=== PATIENT | female | born 1940 | race Caucasian/White ===

== ENCOUNTER 2023-06-03 13:42 | Outpatient (CLI) | payer MEDICARE, OTHER, SELFPAY ==
--- NOTE | 2023-06-03 14:00 | CRLHL7_ITS ---
For Patients: As a result of the Century Cures Act, medical imaging exams and procedure reports are released immediately into your electronic medical record. You may view this report before your referring provider. If you have questions, please contact your health care provider. DXA BONE MINERAL DENSITY STUDY Current height (in): 65.0. Weight (lb): 147.0. Menopause age: 54. Ethnicity: White. Reason for exam: Osteoporosis followup. 1. Have you had a previous hip or vertebral fracture? No. 2. Have you had any fractures during your adult life which did not result from significant trauma (e.g., auto accident)? No. 3. Did either of your parents have a hip fracture? No. 4. Do you smoke? No. 5. Have you ever taken Glucocorticoids? No. 6. Do you have rheumatoid arthritis? No. 7. Do you have secondary osteoporosis? No. 8. Do you drink 3 or more alcoholic drinks per day? No. 9. Are you being treated for osteoporosis? No. 10. Have you ever taken any of the following medications: Actonel, Evista, Fosamax, Miacalcin, Reclast, Boniva, Forteo, HRT (i.e. estrogen/hormone therapy), Protelos, Prolia, Vitamin D, Calcium, other ??? please specify. ANSWER: Yes, calcium, vitamin D. 11. Do you have any of the following medical conditions: Anorexia or bulimia, asthma or emphysema, end stage renal disease, hyperparathyroidism, any seizure disorders, cancer, inflammatory bowel diseases, hysterectomy, other ??? please specify. ANSWER: Yes, other: arthritis/osteopenia 12. What was your maximum height (inches)? 66. 13. Do you perform weight bearing exercise regularly? No. 14. Do you regularly consume dairy products? Yes. 15. Do you drink caffeinated beverages? No. 16. At what age did your period start? 14. 17. Are you premenopausal? No. 18. How many full term pregnancies have you had? 1. 19. Have you ever missed your period for more than 6 months in a row (not including or menopause)? No. TECHNIQUE: Bone mineral density study was performed using the [employer]. FINDINGS: The results of the study expressed as bone mineral density (BMD) are as follows: Lumbar spine L1 to L4: BMD: 0.937 g/cm2. T-score: -1.1. Z-score: 1.7. Neck Left: BMD: 0.575 g/cm2. T-score: -2.5. Z-score: -0.1. Right: BMD: 0.575 g/cm2. T-score: -2.5. Z-score: -0.1. Total Left: BMD: 0.799 g/cm2. T-score: -1.2. Z-score: 0.9. Right: BMD: 0.758 g/cm2. T-score: -1.5. Z-score: 0.6. IMPRESSION: Osteoporosis. Srinivasa Roth M.D. Diagnostic Radiologist [email or web address] Transcribed: 4:08 pm DW/Dictated by: Srinivasa Roth MD @ 06/03/2023 3:50:00 PM (Electronically Signed)
== END 2023-06-03 13:43 | disposition home or self-care (01) ==
LOC: RAD 13:43
PROVIDERS: PCP Family Medicine; Visit Provider Family Medicine
DX: M81.0 Age-related osteoporosis without current pathological fracture (principal)
CPT/HCPCS: 77080

== ENCOUNTER 2023-12-07 13:28 | Outpatient (CLI) | payer MEDICARE, OTHER, SELFPAY ==
--- OUTSIDE RECORDS SUMMARY | 2023-12-07 13:32 | XMS_ITS | Clinical Summary ---
Author Name Unknown Organization [facility] Address [place], [place] [address] Care Team Providers Care Electronic Gaming Device Supervisor Name Role Phone Yassine Erickson MD Unavailable Alireza Richardson MD Unavailable [phone] Mireille Garza MD Primary Care Provider + Allergies No known active allergies Medications Medication Sig Dispensed Refills Start Date End Date Status acetaminophen (TYLENOL) 325 mg tablet Take 325-650 mg by mouth every 4 hours if needed. Max acetaminophen dose: 4000mg in 24 hrs. 0 Active PROXY UNCLASSIFIED MED (ORDER AWAITING PHARMACY ENTRY)Indications: Chronic midline thoracic back pain,Chronic midline low back pain without sciatica Acupuncture twice per month for chronic thoracic and lumbar back pain 1 unit 11/23/2017 Active medication order composerIndication s:Chronic midline thoracic back pain,Chronic midline low back pain without sciatica Massage therapy for treatment back and hip pain, chronic. Three times monthly 1 unit 0 11/23/2017 Active xylitol (XYLIMELTS) 550 mg mabt Apply to the lining of the mouth. 0 08/11/2019 Active cyanocobalamin (VITAMIN B-12) 1,000 mcg tablet Take 1 tablet by mouth once daily. 0 08/15/2020 Active magnesium oxide (MAG-OX 400) 400 mg tablet Take 1 Tablet (400 mg) by mouth once daily. Takes occasionally as needed 0 09/24/2021 Active melatonin 10 mg tab Take by mouth. 0 09/24/2021 Active famotidine (PEPCID) 20 mg tabletIndications: Gastroesophageal reflux disease, unspecified whether esophagitis present TAKE 1 TABLET(20 MG) BY MOUTH TWICE DAILY 180 Tablet 2 12/29/2021 Active calcium-vitamin D3-vitamin K 650 mg-12.5 mcg-40 mcg chewIndications:Os teopenia, unspecified location Chew 1 tablet. by mouth once daily. 0 03/23/2022 Active cholecalciferol (Vitamin D-3) 2,000 unit capsule Take 1 Capsule (2,000 units) by mouth once daily. 0 03/23/2022 Active ucogen-lviq-whfe-l evomef-silic 10-50-500-0.5 mg cap Take by mouth. 0 09/10/2022 Active amLODIPine (NORVASC) 5 mg tabletIndications: Primary hypertension Take 1 Tablet (5 mg) by mouth once daily. 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 Family history of breast cancer 06/10/2017 Acid reflux 03/28/2013 Overview: Upper GI 2020 - spontaneous reflux to proximal esophagus Small hiatal hernia Screen for colon cancer 12/17/2011 Overview: Colonoscopy 11/2011 normal no follow up needed Osteopenia 10/30/2011 Overview: Dexa 2020 - osteopenia, increased FRAX score Dexa 2017 Sensorineural hearing loss, bilateral 09/18/2011 Degenerative disc disease, cervical 07/16/2010 Overview: Multiple levels DJD (degenerative joint disease) 07/16/2010 Overview: L 2-3 and L 3-4 Arthropathy, unspecified, site unspecified 09/08 Degenerative joint disease of cervical spine Spondylosis of cervical spine Encounters Date Type Department Care Team Description 11/03/2023 1:00 PM SEX CRIMES DETECTIVE Office Visit [facility] [address] [place] [address] Evelyn Franklin, PhD, LP Individual Therapy 11/03/2023 Travel 10/06/2023 10:30 AM SEX CRIMES DETECTIVE Office Visit [facility] [address] [place] [address] Evelyn Franklin, PhD, LP Individual Therapy 10/06/2023 Travel 09/13/2023 2:30 PM CDT Office Visit [facility] [address] [place] [address] Evelyn Franklin, PhD, LP Individual Therapy; Trmt Plan 09/13/2023 Travel from Last 3 Months Immunizations Name Administration Dates Next Due AMB Influenza, IIV3 (Age >=3 years)(Flu Clinic Only) 10/13/2013,08/30/2012,09/27/2008 COVID-19 vaccine (Pfizer-Bio NTech 30mcg/0.3mL) 12YO+ GREGOR-SUCROSE PF, MDV 03/23/2022 COVID-19 vaccine (Beststudy-Bio NTech 30mcg/0.3mL) PF, MDV 08/21/2021,01/25/2021,01/04/2021 Hepatitis A (Adult) 01/24/2002,02/18/2001 Hepatitis B (Adult) 01/24/2002,03/25/2001,2000 Influenza Virus, Unspecified 09/27/2015 Influenza, High-dose Inactivated 08/22/2018,08/22,09/05/2014 Influenza, High-dose Quadriv alent Inactivated 08/25/2022,08/28/2021 Influenza, IIV3 (Age >=3 years) 10/30/2011,08/20,10/18/2007 Influenza, Inactivated AIIV4 (Age 65+ Years) Preserv Free 09/03/2020 Influenza, Inactivated IIV3 (Age 65+ Years) Preserv Free 08/30/2019 Influenza, Whole Virus 09/01/2017 Pneumococcal Poly,23-Valent (Pneumovax) 11/03/20 13 Pneumococcal conj 13-Valent (Prevnar 13) 015 Td (Age >=7 Years) 11/25/1998 Td, Preservative Free (age >= 7 Years) 0 Tdap 11/02/2012 Typhoid (injectable) 02/25/2001 Zoster (Shingrix-RZV, recombinant) 06/01/2018, Zoster (Zostavax-ZVL, live) 11/18/2012 Family History Medical History Relation Name Comments Alcohol/Drug Father Asthma Father Heart Disease Father [place] 60s Heart Disease Paternal Uncle Cancer-breast Sister 1 traudi Heart Disease Sister 1 traudi stent age 65 Brain cancer Sister 2 christl Cancer-breast Sister 2 christl mets to liver, bones, and brain Other Sister 2 christl overweight Cancer-ovarian No Family History Relation Name Status Comments Father Paternal Uncle Sister 1 traudi Alive Sister 2 christl Social History Tobacco Use Types Packs/Day Years Used Date Smoking Tobacco: Never Smokeless Tobacco: Never Tobacco Cessation:Counseling Given: Yes Alcohol Use Standard Drinks/Week Comments Yes 5.8 (1 standard drink = 0.6 oz p ure alcohol) wine, 1-2 glasses per day PHQ-2 Answer Date Recorded PHQ-2 TOTAL SCORE 2 03/23/2022 Social Connections Answer Date Recorded Frequency of Communication with Friends and Fami ly Not on file 03/30/2023 Financial Resource Strain Answer Date R ecorded Difficulty of Paying Living Expenses 3 03/23/2022 Difficulty of Paying Living Expenses Not on file 03/23/2022 Food Insecurity Answer Date Recorded Worried About Running Out of Food in the Last Ye ar 1 03/23/2022 Transportation Needs Answer Date Record ed Lack of Transportation (Medical) 1 03/23/2022 Housing Stability Answer Date Recorded Unable to Pay for Housing in the Last Year 1 03/23/2022 Sex and Gender Information Value Date Recorded Sex Assigned at Not on file Gender Identity Not on file Sexual Orientation Not on file Obstetrics History Para Term AB IAB SAB Ectopic Multiple Livin g Live Births 1 1 Date Outcome GA Total Labor Labor//3rd Weight Sex Delivery Anes PTL Jewell A1 A5 Name Cl in Last Filed Vital Signs Vital Sign [place] Time Taken Comments Blood Pressure 148/88 12/29/2022 1:35 PM SEX CRIMES DETECTIVE man ual Pulse 74 12/29/2022 1:35 PM SEX CRIMES DETECTIVE Temperature 36.5 ??C (97.7 ??F) 09/10/2022 11:05 AM C DT Respiratory Rate 18 09/10/2022 11:05 AM CDT Oxygen Saturation 97% 12/29/2022 1:35 PM SEX CRIMES DETECTIVE Inhaled Oxygen Concentration - - Weight 68.5 kg (151 lb) 12/29/2022 1:35 PM SEX CRIMES DETECTIVE Height 165.1 cm (5' 5) 09/10/2022 11:05 AM CDT Body Mass Index 25.13 09/10/2022 11:05 AM CDT Plan of Treatment Upcoming Encounters Date Type Department Care Team (Late st Contact Info) Description 12/08/2023 1:00 PM SEX CRIMES DETECTIVE Office Visit [facility] [address] [place] [phone] Evelyn Franklin, PhD, LP [address] [place] [address] Health Maintenance Due Date Last Done Comments Tetanus booster 11/02/2022 11/02/2012, 04/22, 11/25/1998 Medicare Wellness for age 65+ 03/23/2023, 12/04/2020, 11/29/2019, Additional history exists Depression screening for age 12+ 03/26/2023 03/26/2022, 03/23/2022, 12/04/2020, Additional history exists COVID-19 vaccine series ( season) 2023 08/25/2022, 03/23/2022, 08/21/2021, Additional history exists Influenza for age 65+ 07/23/2023 08/25/2022 , 08/28/2021, 09/03/2020, Additional history exists BMI (ht and wt on same day) for age 18+ 09/10/2023 09/10/2022, 03/23/2022, 08/22/2021, Additional history exists Tdap Completed 11/02/2012 Pneumococcal series for age 65+ Completed 5, 11/03/2013 Zoster (shingles) series for age 50+ Completed 06/01/2018, 03/09/2018, 11/18/2012 DEXA/DXA scan for age 65+ Completed 2020, 11/25/2017, 11/19/2015, Additional history exists Advance Directives Documents on File Type Date Recorded Patient Louver Door Assembler Expl anation Healthcare Directive 07/26/2018 9:52 AM HEJossue LTHCARE DIRECTIVE, [employer] [place], 07/20/18 Care Teams Electronic Gaming Device Supervisor Relationship Specialty Start Date End Date Mireille Garza MD [address] [place] [address] PCP - General Family Practice 05/10/23 Yassine Erickson MD Surgery - Orthopedics 11/07/15 Alireza Richardson MD [address] [place] [id number] Gastroenterology 03/23/22
== END 2023-12-07 13:29 | disposition home or self-care (01) ==
PROVIDERS: PCP Family Medicine; Visit Provider Family Medicine
DX: I10 Essential (primary) hypertension (principal); E78.5 Hyperlipidemia, unspecified; R00.2 Palpitations
CPT/HCPCS: 80048; 80061; 84443

== ENCOUNTER 2023-12-21 08:53 | Outpatient (CLI) | payer MEDICARE, OTHER, SELFPAY ==
--- OUTSIDE RECORDS SUMMARY | 2023-12-21 09:16 | XMS_ITS | Clinical Summary ---
Author Name Unknown Organization [facility] Address [place], [place] [address] Care Team Providers Care Manager Operating Name Role Phone Yassine Erickson MD Unavailable Alireza Richardson MD Unavailable [phone] Mireille Garza MD Primary Care Provider + [...] by mouth once daily. 0 03/23/2022 Active lsahey-grri-jjzs-l evomef-silic 10-50-500-0.5 mg cap Take by mouth. [...] Encounters Date Type Department Care Team Description 12/08/2023 1:00 PM WELLFIELD TECHNICIAN Office Visit [facility] [address] [place] [address] Evelyn Franklin, PhD, LP Individual Therapy 12/08/2023 Travel 11/03/2023 1:00 PM WELLFIELD TECHNICIAN Office Visit [facility] [address] [place] [address] Evelyn Franklin, PhD, LP Individual Therapy 11/03/2023 Travel 10/06/2023 10:30 AM WELLFIELD TECHNICIAN Office Visit [facility] [address] [place] [address] Evelyn Franklin, PhD, LP Individual Therapy 10/06/2023 Travel from Last 3 Months Immunizations Name Administration Dates Next Due AMB Influenza, IIV3 (Age >=3 years)(Flu Clinic Only) 10/13/2013,08/30/2012,09/27/2008 COVID-19 vaccine (Pfizer-Bio NTech 30mcg/0.3mL) 12YO+ GREGOR-SUCROSE PF, MDV 03/23/2022 COVID-19 vaccine (Pfizer-Bio NTech 30mcg/0.3mL) PF, MDV 08/21/2021,01/25/2021,01/04/2021 Hepatitis A [...] Alcohol/Drug Father Asthma Father Heart Disease Father [place] 60s Heart Disease Paternal Uncle Cancer-breast Sister [...] 1 1 Date Outcome GA Total Labor Labor/2nd/3rd Weight Sex Delivery Anes PTL Jewell A1 A5 Name Cl in Last Filed Vital Signs Vital Sign [place] Time Taken Comments Blood Pressure 148/88 12/29/2022 1:35 PM WELLFIELD TECHNICIAN man ual Pulse 74 12/29/2022 1:35 PM WELLFIELD TECHNICIAN Temperature 36.5 ??C (97.7 ??F) 09/10/2022 11:05 AM C DT Respiratory Rate 18 09/10/2022 11:05 AM CDT Oxygen Saturation 97% 12/29/2022 1:35 PM WELLFIELD TECHNICIAN Inhaled Oxygen Concentration - - Weight 68.5 kg (151 lb) 12/29/2022 1:35 PM WELLFIELD TECHNICIAN Height 165.1 cm (5' 5) 09/10/2022 11:05 AM CDT Body Mass Index 25.13 09/10/2022 11:05 AM CDT Plan of Treatment Upcoming Encounters Date Type Department Care Team (Late st Contact Info) Description 12/21/2023 9:30 AM WELLFIELD TECHNICIAN Ancillary Procedure [facility] [address] [place] [address] 01/19/2024 3:15 PM WELLFIELD TECHNICIAN Office Visit [facility] [address] [place] [address] Evelyn Franklin, PhD, LP [address] [place] [address] 02/09/2024 2:30 PM CDT Office Visit [facility] [address] [place] [address] Evelyn Franklin, PhD, LP [address] [place] [address] Health Maintenance Due Date Last Done Comments Tetanus booster 11/02/2022 11/02/2012, 04/22, 11/25/1998 Medicare Wellness for age 65+ 03/23/2023, 12/04/2020, 11/29/2019, Additional history exists Depression screening for age 12+ 03/26/2023 03/26/2022, 03/23/2022, 12/04/2020, Additional history exists COVID-19 vaccine series (2022-24 season) 2023 08/25/2022, 03/23/2022, 08/21/2021, Additional history [...] Documents on File Type Date Recorded Patient Grocery Shopper Expl anation Healthcare Directive 07/26/2018 9:52 AM HEA LTHCARE DIRECTIVE, [employer] [place], 07/20/18 Care Teams Manager Operating Relationship Specialty Start Date End Date Mireille Garza MD [address] [place] [address] PCP - General Family Practice 05/10/23 Yassine Erickson MD Surgery - Orthopedics 11/07/15 Alireza Richardson MD [address] [place] [id number] Gastroenterology 03/23/22
[2023-12-21 10:50] VITALS: BP 112/65; PULSE 75
--- NOTE | 2023-12-21 11:18 | PM.ST ---
Stress Test Note Date Date of test: 12/21/23 Providers Primary care provider: Mireille Garza Stress test physician: Jasen White Stress Test Note Stress test ordered: Stress Myoview Indication for test: Chest pain Results discussion: Patient is a very nice 83-year-old female who presents for the above test after discussion the risks benefits and side effects she would like to proceed. Cardiac stress test medical history form is reviewed. Pretest EKG shows right bundle branch block configuration, that is complete. Ventricular rate was 64 rhythm is sinus, with a blood pressure 139/87. ST wave abnormalities are noted in leads 2 and precordial leads, likely due to conduction delay. Standard Aime protocol is employed over a time period of 6 minutes 12 seconds, she achieved a metabolic equivalent of 7.5 Mets with a maximum heart rate of 127 which is 107% of the maximum. She did have some ST wave depression noted that resolved during this test. This occurred in the lateral precordial leads V5 and V6, inferiorly. This is indicative possible ischemia, but correlation with nuclear portion will be needed conditioning was felt to be good. She was otherwise asymptomatic. Impression: Positive stress test with inducement of ST wave changes described above. Correlate with nuclear portion. Follow up suggested: Nuclear portion will be read by nuclear Medicine, clinical correlation with this will be needed, patient left this testing facility at baseline with no complaints.
== END 2023-12-21 08:54 | disposition home or self-care (01) ==
PROVIDERS: PCP Family Medicine; Visit Provider Family Medicine
DX: R07.9 Chest pain, unspecified (principal); I45.10 Unspecified right bundle-branch block
CPT/HCPCS: 78452; 93016; 93017; A9500

== ENCOUNTER 2024-02-14 12:45 | Outpatient (CLI) | payer MEDICARE, OTHER, SELFPAY | END 2024-02-14 12:46 | disposition home or self-care (01) | LOC: RAD 12:46 | PROVIDERS: PCP Family Medicine; Visit Provider Family Medicine | DX: R01.1 Cardiac murmur, unspecified (principal); I35.1 Nonrheumatic aortic (valve) insufficiency; I34.0 Nonrheumatic mitral (valve) insufficiency | CPT/HCPCS: 93306 ==

== ENCOUNTER 2024-05-09 12:54 | Outpatient (CLI) | payer MEDICARE, OTHER, SELFPAY ==
--- OUTSIDE RECORDS SUMMARY | 2024-05-09 12:58 | XMS_ITS | Clinical Summary ---
Author Organization [employer] [facility] [employer] [facility] Address [place], [place] [address] Care Team Providers Care Supervisor Pipelines Name Role Phone Yassine Erickson MD Unavailable [phone] Alireza Richardson MD Unavailable Mireille Garza MD Primary Care Provider + Allergies No known active allergies Medications Medication Sig Dispensed Refills Start Date End Date Status acetaminophen (TYLENOL) 325 mg tablet Take 325-650 mg by mouth every 4 hours if needed. Max acetaminophen dose: 4000mg in 24 hrs. Active PROXY UNCLASSIFIED MED (ORDER AWAITING PHARMACY ENTRY)Indications: Chronic midline thoracic back pain,Chronic midline low back pain without sciatica Acupuncture twice per month for chronic thoracic and lumbar back pain 1 unit 11/23/2017 Active medication order composerIndication s:Chronic midline thoracic back pain,Chronic midline low back pain without sciatica Massage therapy for treatment back and hip pain, chronic. Three times monthly 1 unit 11/23/2017 Active xylitol (XYLIMELTS) 550 mg mabt [...] by mouth once daily. 0 03/23/2022 Active gvjxqt-muna-hgjz-l evomef-silic 10-50-500-0.5 mg cap Take by mouth. [...] Encounters Date Type Department Care Team Description 04/26/2024 1:00 PM CDT Office Visit [facility] [address] [place] [address] Evelyn Franklin, PhD, LP Individual Therapy 04/26/2024 Travel 04/10/2024 1:45 PM CDT Office Visit [facility] [address] [place] [address] Evelyn Franklin, PhD, LP Individual Therapy 04/10/2024 Travel 03/15/2024 1:45 PM CDT Office Visit [facility] [address] [place] [address] Evelyn Franklin, PhD, LP Individual Therapy 03/15/2024 Travel 02/14/2024 1:00 PM CDT Ancillary Procedure [facility] [address] [place] [address] 02/09/2024 2:30 PM CDT Office Visit [facility] [address] [place] [address] Evelyn Franklin, PhD, LP Individual Therapy 02/09/2024 Travel from Last 3 Months Immunizations Name [...] Alcohol/Drug Father Asthma Father Heart Disease Father [place] 60s Heart Disease Paternal Uncle Cancer-breast Sister [...] Outcome GA Total Labor Labor/2nd/3rd Weight Sex Type Anes PTL Jewell A1 A5 Name Clin Last Filed Vital Signs Vital Sign Reading Time Taken Comments Blood Pressure 148/88 12/29/2022 1:35 PM ARMORER TECHNICIAN man ual Pulse 74 12/29/2022 1:35 PM ARMORER TECHNICIAN Temperature 36.5 ??C (97.7 ??F) 09/10/2022 11:05 AM C DT Respiratory Rate 18 09/10/2022 11:05 AM CDT Oxygen Saturation 97% 12/29/2022 1:35 PM ARMORER TECHNICIAN Inhaled Oxygen Concentration - - Weight 68.5 kg (151 lb) 12/29/2022 1:35 PM ARMORER TECHNICIAN Height 165.1 cm (5' 5) 09/10/2022 11:05 AM CDT Body Mass Index 25.13 09/10/2022 11:05 AM CDT Plan of Treatment Upcoming Encounters Date Type Department Care Team (Late st Contact Info) Description 06/07/2024 9:45 AM CDT Office Visit [facility] [address] [place] [address] Evelyn Franklin, PhD, LP [address] [place] [address] Health Maintenance Due Date Last Done Comments Tetanus booster 11/02/2022 11/02/2012, 04/22, 11/25/1998 Medicare Wellness for age 65+ 03/24/2023, 12/04/2020, 11/29/2019, Additional history exists Depression screening for age 12+ 03/26/2023 03/26/2022, 03/23/2022, 12/04/2020, Additional history exists COVID-19 vaccine series ( season) 2023 08/25/2022, 03/23/2022, 08/21/2021, Additional history exists BMI (ht and wt on same day) for age 18+ 09/10/2023 09/10/2022, 03/23/2022, 08/22/2021, Additional history exists Influenza for age 65+ 07/23/2024 08/25/2022 , 08/28/2021, 09/03/2020, Additional history exists Tdap Completed 11/02/2012 Pneumococcal series for age 65+ Completed 5, 11/03/2013 Zoster (shingles) series for age 50+ Completed 06/01/2018, 03/09/2018, 11/18/2012 DEXA/DXA scan for age 65+ Completed 2020, 11/25/2017, 11/19/2015, Additional history exists Procedures Procedure Name Priority Date/Time Associated Diagnosis Comments ECHO TTE COMPLETE WO CONTRAST Routine 02/14/2024 1:19 PM CDT Murmur XR DXA BONE DENSITY 2 SITES AXIAL Routine 12/09/2020 2:11 PM ARMORER TECHNICIAN Menopause from Last 3 Months or Most Recently Relevant to Health Maintenance Results * ECHO TTE COMPLETE WO CONTRAST (02/14/2024 1:19 PM CDT) AORTIC VALVE MEAN PG 6 mmHg EJECTION FRACTION 78 % PEAK TR VELOCITY 2.6 m/s LVEDD 3.7 cm Anatomical Region Laterality Modality Ultrasound 02/14/2024 1:03 PM CDT Narrative 02/14/2024 1:45 PM CDT ECHOCARDIOGRAM NORBERT YEN ?Accession#: ?? [id number] : ?1940 83 years Study Date: ?? 02/14/2024 1:03:09 PM Gender: F ? BP: ? 138/86 mmHg Height: 165.00 cm ? BSA: ?1.76 m? ? ? Weight: 69.00 kg ?Tech: ? NWA ?Referring MD: TESHA GRECO Site: ? [facility] Reading Location: Mobile-OP Patient Location: Outpatient. Procedure: 2D, Color Doppler and Spectral Doppler. Indication for study: Murmur Cardiac Rhythm: Normal sinus.Study quality: Good. Final Impressions: 1. Normal left ventricular size, normal wall thickness, calculated EF of 78 %. 2. Normal right ventricular size and systolic function. 3. The aortic valve is trileaflet and sclerotic, no stenosis and trivial regurgitation. 4. The mitral valve is normal, mild mitral regurgitation. 5. The inferior vena cava is normal sized, respiratory size variation greater than 50%. Chamber Sizes and Function Normal left ventricular size, borderline wall thickness, hyperdynamic global systolic function, calculated EF of 78 %. Left atrial size is normal. Right ventricular cavity size is normal, global systolic RV function is normal. RV wall thickness is normal. The right atrium is normal. Right atrial volume index is 12 ml/m? ? ?. Right atrial area is 11 cm? ? ?. The pulmonary artery is of normal size and origin. The sinus of Valsalva is normal sized. The ascending aorta is normal sized. Valves, RV Pressures and Diastolic Function The aortic valve is trileaflet and sclerotic, no stenosis and trivial regurgitation. The mitral valve is normal in structure, mild mitral regurgitation. Normal diastolic function. The tricuspid valve is normal in structure. Tricuspid regurgitation is mild regurgitation. The tricuspid regurgitant velocity is 2.6 m/s, the estimated right ventricular systolic pressure is 28 mmHg plus right atrial pressure. The pulmonic valve is normal. Trace pulmonary regurgitation. Masses, Effusion, Shunts There is no pericardial effusion. The inferior vena cava is normal sized, respiratory size variation greater than 50%. No left to right shunting was detected by limited color flow Doppler interrogation of the interatrial septum. MEASUREMENTS AND CALCULATIONS 2-D Measurements and LV Function: LVID (d) 3.7 cm Planimetered EF 78 % LVID (s) 2.0 cm LV FS% (2D) ? 46 % IVS (d) ??1.1 cm LVOT diameter ?? 2.1 cm LVPW (d) 1.2 cm HR ?66 bpm Ao Sinus 3.4 cm LA Vol index ?26 ml/m2 Asc Ao ?? 3.6 cm RA Vol index ?12 ml/m2 LA ? 3.5 cm RA area ? 11 cm?RV Max 4C (d) ?? 2.6 cm Diastology: Mitral ?Tissue Doppler ?Pulmonary veins E Peak 1.1 m/s ??e', Septum ? 0.08 m/s Pulm s ?53.6 cm/s A Peak 1.1 m/s ??e', Lateral ?0.09 m/s Pulm d ?47.4 cm/s E/A ?1.0 ?E/e' Average ?? 13.54 ?Pulm s/d ratio ??1.13 DT ? 220 msec Aortic Valve: Vmax ? 1.6 m/s ??ISABEL (V) ?? 2.63 cm? ? ? VTI ?0.37 m ?? ISABEL (I) ?? 2.71 cm? ? ? LVOT V max 1.3 m/s ??Max PG ?10 mmHg LVOT VTI ?? 0.30 m ?? Mean PG ?? 6 mmHg SV ? 100 ml ?? Dim Index 0.81 SV index ?? 57 ml/m? ? ? CO ?6.6 l/min ?CI ?3.8 l/min/m? ? ? Mitral Valve: MVA ?3.4 cm? ? ? MV P 1/2 64 msec Tricuspid Valve and estimated PA pressures: TR Vmax 2.6 m/s TAPSE 2.3 cm TR maxG 28 mmHg Pulmonic Valve: PV Vmax 1.2 m/s . This study was interpreted by an [facility] accredited facility. CC: [facility] (med records) [facility]. ??Final ?? Procedure Note Jaren Romeo MD - 02/14/2024 ECHOCARDIOGRAM NORBERT YEN : 1940 83 years Study Date: 02/14/2024 1:03:09 PM Gender: F BP: 138/86 mmHg Height: 165.00 cm BSA: 1.76 m? ? ? Weight: 69.00 kg Tech: NWA Referring MD: TESHA GRECO Site: [facility] Reading Location: Mobile-OP Patient Location: Outpatient. Procedure: 2D, Color Doppler and Spectral Doppler. Indication for study: Murmur Cardiac Rhythm: Normal sinus.Study quality: Good. Final Impressions: 1. Normal left ventricular size, normal wall thickness, calculated EF of78 %. 2. Normal right ventricular size and systolic function. 3. The aortic valve is trileaflet and sclerotic, no stenosis and trivialregurgitation. 4. The mitral valve is normal, mild mitral regurgitation. 5. The inferior vena cava is normal sized, respiratory size variationgreater than 50%. Chamber Sizes and Function Normal left ventricular size, borderline wall thickness, hyperdynamicglobal systolic function, calculated EF of 78 %. Left atrial size isnormal. Right ventricular cavity size is normal, global systolic RVfunction is normal. RV wall thickness is normal. The right atrium isnormal. Right atrial volume index is 12 ml/m? ? ?. Right atrial area is 11cm? ? ?. The pulmonary artery is of normal size and origin. The sinus ofValsalva is normal sized. The ascending aorta is normal sized. Valves, RV Pressures and Diastolic Function The aortic valve is trileaflet and sclerotic, no stenosis and trivialregurgitation. The mitral valve is normal in structure, mild mitralregurgitation. Normal diastolic function. The tricuspid valve is normal instructure. Tricuspid regurgitation is mild regurgitation. The tricuspidregurgitant velocity is 2.6 m/s, the estimated right ventricular systolicpressure is 28 mmHg plus right atrial pressure. The pulmonic valve isnormal. Trace pulmonary regurgitation. Masses, Effusion, Shunts There is no pericardial effusion. The inferior vena cava is normal sized,respiratory size variation greater than 50%. No left to right shunting wasdetected by limited color flow Doppler interrogation of the interatrialseptum. MEASUREMENTS AND CALCULATIONS 2-D Measurements and LV Function: LVID (d) 3.7 cm Planimetered EF 78 % LVID (s) 2.0 cm LV FS% (2D) 46 % IVS (d) 1.1 cm LVOT diameter 2.1 cm LVPW (d) 1.2 cm HR 66 bpm Ao Sinus 3.4 cm LA Vol index 26 ml/m2 Asc Ao 3.6 cm RA Vol index 12 ml/m2 LA 3.5 cm RA area 11 cm? ? ? RV Max 4C (d) 2.6 cm Diastology: Mitral Tissue Doppler Pulmonary veins E Peak 1.1 m/s e', Septum 0.08 m/s Pulm s 53.6 cm/s A Peak 1.1 m/s e', Lateral 0.09 m/s Pulm d 47.4 cm/s E/A 1.0 E/e' Average 13.54 Pulm s/d ratio 1.13 DT 220 msec Aortic Valve: Vmax 1.6 m/s ISABEL (V) 2.63 cm? ? ? VTI 0.37 m ISABEL (I) 2.71 cm? ? ? LVOT V max 1.3 m/s Max PG 10 mmHg LVOT VTI 0.30 m Mean PG 6 mmHg SV 100 ml Dim Index 0.81 SV index 57 ml/m? ? ? CO 6.6 l/min CI 3.8 l/min/m? ? ? Mitral Valve: MVA 3.4 cm? ? ? MV P 1/2 64 msec Tricuspid Valve and estimated PA pressures: TR Vmax 2.6 m/s TAPSE 2.3 cm TR maxG 28 mmHg Pulmonic Valve: PV Vmax 1.2 m/s . This study was interpreted by an [facility] accredited facility. CC: [place] (med records) [facility]. Final Tesha Greco PA-C ECHO ORD * (ABNORMAL) XR DXA BONE DENSITY 2 SITES AXIAL (12/09/2020 2:11 PM ARMORER TECHNICIAN) Anatomical Region Laterality Modality Spine, HIPS, HIPL, HIPR Other Narrative 12/11/2020 2:44 PM ARMORER TECHNICIAN Please see scanned document for results of this study. Tali Patel MD DEXA from Last 3 Months or Most Recently Relevant to Health Maintenance Advance Directives Documents on File Type Date Recorded Patient Patrol Officer Expl anation Healthcare Directive 07/26/2018 9:52 AM HEA LTHCARE DIRECTIVE, [employer] [place], 07/20/18 Care Teams Supervisor Pipelines Relationship Specialty Start Date End Date Mireille Garza MD [address] [place] [address] PCP - General Family Practice 05/10/23 Yassine Erickson MD Surgery - Orthopedics 11/07/15 Alireza Richardson MD [address] [place] [address] Gastroenterology 03/23/22
--- NOTE | 2024-05-09 13:00 | CRLHL7_ITS ---
For Patients: As a result of the Century Cures Act, medical imaging exams and procedure reports are released immediately into your electronic medical record. You may view this report before your referring provider. If you have questions, please contact your health care provider. BILATERAL SCREENING MAMMOGRAM WITH COMPUTER-AIDED DETECTION AND TOMOSYNTHESIS TECHNIQUE: CC and MLO views were obtained. These mammographic images have been obtained using full-field digital technique. These mammographic images were interpreted with the benefit of computer-aided detection. Breast Tomosynthesis was used in this interpretation. COMPARISON FILM: 01/01/23, 12/10/21, 12/09/20. FINDINGS: There are scattered areas of fibroglandular density. IMPRESSION: There is no radiographic evidence for malignancy. ASSESSMENT: BI-RADS Category 2: Benign RECOMMENDATION: Routine screening mammogram in 1 year. A lay language report of this examination will be provided to the patient. Srinivasa Roth M.D. Diagnostic Radiologist [email or web address] SP/Dictated by: Srinivasa Roth MD @ 05/11/2024 10:21:00 AM (Electronically Signed)
== END 2024-05-09 12:55 | disposition home or self-care (01) ==
LOC: MAMMO 12:57
PROVIDERS: PCP Family Medicine; Visit Provider Family Medicine
DX: Z12.31 Encounter for screening mammogram for malignant neoplasm of breast (principal)
CPT/HCPCS: 77063; 77067

== ENCOUNTER 2024-06-19 09:42 | Outpatient (CLI) | payer MEDICARE, OTHER, SELFPAY ==
--- OUTSIDE RECORDS SUMMARY | 2024-06-20 11:21 | XMS_ITS | Clinical Summary ---
Author Organization [employer] [facility] [employer] [facility] Address [place], [place] [address] Care Team Providers Care Stripper Machine Operator Name Role Phone Yassine Erickson MD Unavailable [phone] Alireza Richardson MD Unavailable [phone] Mireille Garza MD Primary Care Provider + [...] by mouth once daily. 0 03/23/2022 Active klejxb-evaa-adqx-l evomef-silic 10-50-500-0.5 mg cap Take by mouth. [...] Encounters Date Type Department Care Team Description 06/07/2024 9:45 AM CDT Office Visit [facility] [address] [place] [address] Evelyn Franklin, PhD, LP Individual Therapy 06/07/2024 Travel 04/26/2024 1:00 PM CDT Office Visit [facility] [address] [place] [address] Evelyn Franklin, PhD, LP Individual Therapy 04/26/2024 Travel 04/10/2024 1:45 PM CDT Office Visit [facility] [address] [facility] [place] [address] Evelyn Franklin, PhD, LP Individual Therapy 04/10/2024 Travel from Last 3 Months Immunizations Name [...] Alcohol/Drug Father Asthma Father Heart Disease Father [place] 60s Heart Disease Paternal Uncle Cancer-breast Sister [...] Comments Blood Pressure 148/88 12/29/2022 1:35 PM CATEGORY DIRECTOR man ual Pulse 74 12/29/2022 1:35 PM CATEGORY DIRECTOR Temperature 36.5 ??C (97.7 ??F) 09/10/2022 11:05 AM C DT Respiratory Rate 18 09/10/2022 11:05 AM CDT Oxygen Saturation 97% 12/29/2022 1:35 PM CATEGORY DIRECTOR Inhaled Oxygen Concentration - - Weight 68.5 kg (151 lb) 12/29/2022 1:35 PM CATEGORY DIRECTOR Height 165.1 cm (5' 5) 09/10/2022 11:05 AM CDT Body Mass Index 25.13 09/10/2022 11:05 AM CDT Plan of Treatment Upcoming Encounters Date Type Department Care Team (Late st Contact Info) Description 07/10/2024 10:30 AM CDT Office Visit [facility] [address] [place] [phone] Evelyn Franklin, PhD, LP [address] [place] [address] 08/07/2024 2:30 PM CDT Office Visit [facility] [address] [place] [address] Evelyn Franklin, PhD, LP [address] [place] [address] Health Maintenance Due Date Last Done Comments [...] Procedure Name Priority Date/Time Associated Diagnosis Comments XR DXA BONE DENSITY 2 SITES AXIAL Routine 12/09/2020 2:11 PM CATEGORY DIRECTOR Menopause from Last 3 Months or Most Recently Relevant to Health Maintenance Results * (ABNORMAL) XR DXA BONE DENSITY 2 SITES AXIAL (12/09/2020 2:11 PM CATEGORY DIRECTOR) Anatomical Region Laterality Modality Spine, HIPS, HIPL, HIPR Other Narrative 12/11/2020 2:44 PM CATEGORY DIRECTOR Please see scanned document for results of this study. Tali Patel MD DEXA from Last 3 Months or Most Recently Relevant to Health Maintenance Advance Directives Documents on File Type Date Recorded Patient Financial Compliance Examiner Expl anation Healthcare Directive 07/26/2018 9:52 AM HEA LTHCARE DIRECTIVE, [employer] [place], 07/20/18 Care Teams Stripper Machine Operator Relationship Specialty Start Date End Date Mireille Garza MD [address] [place] [address] PCP - General Family Practice 05/10/23 Yassine Erickson MD Surgery - Orthopedics 11/07/15 Alireza Richardson MD [facility] [place] [address] Gastroenterology 03/23/22
== END 2024-06-19 09:43 | disposition home or self-care (01) ==
LOC: NFLDREF 06-20 11:19
PROVIDERS: PCP Family Medicine; Referring Provider Family Medicine; Visit Provider Family Medicine
DX: E78.5 Hyperlipidemia, unspecified (principal); E53.8 Deficiency of other specified B group vitamins; M81.0 Age-related osteoporosis without current pathological fracture; I10 Essential (primary) hypertension
CPT/HCPCS: 80053; 80061; 82306; 82607

== ENCOUNTER 2024-11-24 14:30 | Outpatient (CLI) | payer MEDICARE, OTHER, SELFPAY | END 2024-11-24 14:31 | disposition home or self-care (01) | LOC: NFLDREF 11-25 18:53 | PROVIDERS: PCP Family Medicine; Referring Provider Family Medicine; Visit Provider Obstetrics & Gynecology | DX: R39.15 Urgency of urination (principal) | CPT/HCPCS: 87086 ==

== ENCOUNTER 2025-04-18 09:45 | Outpatient (RCR) | payer MEDICARE, OTHER, SELFPAY ==
--- NOTE | 2025-01-31 14:21 | PT.OPEX ---
PT [facility] Outpatient Eval PT [facility] Outpatient Eval Start: 01/31/25 08:05 Freq: Status: Active Protocol: Document 01/31/25 14:19 TALIA (Rec: 01/31/25 14:21 TALIA [id number]) E-signed By Mallory Lloyd, PT Physical Therapy Outpatient Evaluation Insurance Information Recert Due Date 05/01/25 Insurance Name Medicare B Medical Diagnosis Urinary incontinence Treating Diagnosis Urinary frequency, urinary urgency, chronic constipation, R hip weakness Referring Dania Alves Subjective Preferred Name Js Subjective FOr the last 20-30 years has had increased urinary urges and frequency. She is now voiding hourly and 3-4x/night. She does have to use a toilet paper over finger to initiate defecation. She has constipation since childhood. Started bed wetting as a child p having whooping cough. Has asthma and snores as well. She has started vaginal estrogen a few weeks ago. She does use prunes to help her have regular stool intervals. 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 Cannot go 2 hours s voiding. She is up 3x/night. MInimal urine leakage Bowel Hx:BSS 1-2 more common, has to use pressure at EAS to initiate/help stools Pelvic hx: h/o discomfort with intercourse external layers when active. Menopause 30 years ago, not sexually active . Started vaginal estrogen a few weeks ago. VERY dry. / hx: 1 vaginal , long labor, no complications. Breathing: chest/neck breathing, snores at night Pressure management: holds breath [place]: Posture Assessment: hips IR, navicular drop, valgus at first rays, reduced lumbar lordosis TA strength: Fair with cues LUMBAR ROM Flexion: discomfort in lumbar spine repeated flexion: lumbar discomfort Extension: limited 50% Right Sidebend: WFL Left Sidebend: WFL LE MMT Hip flexion: R 4-/5 L 4/5 Hip Extension: deferred Hip abduction: R 3/5 L 4-/5 knee extension: R 4/5 L 4/5 Knee Flexion: R 4/5 L 4/5 JOINT MOBILITY/PALPATION Surgical hx: appendectomy age 14, squamous cell carcinoma near anus in last year Functional Test Performed & Score Impaired single leg stance bilat reports altered nerve sensation and warmth to distal toes Assessment Assessment/Impression Pt is an 84 yr old female c a long standing h/o bladder urgency. She does note some positive valadez in door urgency . Her chronic constipation and snoring during sleeping may be affecting her bladder signals as well. She has increased acidic fluid intake and does not enjoy pure water, which may also be contributing factors. Discussed toilet posturing and improving defecation strategy with footstool. She would benefit from internal assessment to determine muscle strength and coordination of pelvic floor muscles. Primary Functional Limitations urinary frequency, constipation c need to aid defecation, LBP c prolonged walking Plan of Care Physical Therapy Goals Pt will report 50% improvement in overall sx discomfort in 6 weeks for improved QOL. Pt will be indep c 360 breathing to improve pelvic floor coordination in 4 weeks. Pt will demonstrate indep c pelvic floor lift on exhale to support structurally with exertion in 12 weeks. Pt will report improved bladder emptying in 12 weeks for improved QOL. Pt will report improved bristol stool scale of 3-4 5 days/week to reduce bladder emptying obstruction in 8 weeks. Pt will demonstrate improved toilet hygiene with postural considerations and no straining to evacuate bowels or bladder to reduce downward forces on pelvic floor in 12 weeks. Pt will report nocturia of 1- 2x/night for improved QOL in 12 weeks. Coordination/Communication With Referral Source Treatment Plan/Direct Interventions Biofeedback,Electrical Stimulation,Gait Training,Heat ,Ice/Cold/Vasopneumatic,Manual Therapy,Neuromuscular Re-ed, Self-Care/Home Management, Therapeutic Activities, Therapeutic Exercises Frequency/Duration Weekly x12 weeks Patient Will Be Discharged From Therapy Completion of LTG(s),Skills Plateau,Independent w/HEP, Independently Progressing Evaluation Billing Untimed Code Treatment Minutes 50 PT Eval No Charge No Complexity Moderate Certification Information Initial Certification Date 01/31/25 Ending Certification Date 05/01/25 Provider Signature Required Yes Provider Signature Shows Agreement With POC & Medical Necessity Physician NPI Number Write NPI# Here Physician Comment/Change : Physician Signature & Date Requested Please Sign/Date Here
== END 2025-08-16 23:59 | disposition home or self-care (01) ==
PROVIDERS: PCP Family Medicine; Visit Provider Obstetrics & Gynecology
DX: N39.41 Urge incontinence (principal); R35.0 Frequency of micturition; K59.00 Constipation, unspecified; R29.898 Other symptoms and signs involving the musculoskeletal system; Z51.89 Encounter for other specified aftercare
CPT/HCPCS: 97112; 97140; 97162; 97530; 97535

== ENCOUNTER 2025-06-01 09:35 | Outpatient (CLI) | payer MEDICARE, OTHER, SELFPAY ==
--- NOTE | 2025-06-01 10:00 | CRLHL7_ITS ---
For Patients: As a result of the Century Cures Act, medical imaging exams and procedure reports are released immediately into your electronic medical record. You may view this report before your referring provider. If you have questions, please contact your health care provider. Indication: UPPER ABD TENDERNESS X 2 MONTHS Technique: CT Abdomen/Pelvis 69CC ISOVUE 370 INTRAVENOUS CONTRAST AND WATER PREP Please note that all CT scans at this facility use dose modulation, iterative reconstruction, and/or weight-based dosing when appropriate to reduce radiation dose to as low as reasonably achievable. Comparison: None Findings: Mild scarring in both lung bases. No pleural effusion. No pulmonary edema. Incidental 2.4 millimeter nodule in the lingula. No intrahepatic mass. Normal spleen. Pancreas unremarkable. Normal adrenal glands. Kidneys are normal. Normal gallbladder. Atherosclerotic changes. No aneurysm. No hiatal hernia. No retroperitoneal or mesenteric adenopathy. No bowel obstruction, free air, free fluid or abscess. The bladder is incompletely distended. No pelvic or inguinal adenopathy. No pelvic mass. Umbilical hernia containing fat is present which measures 1.3 cm. No significant diastasis of the rectus muscles. Degenerative facet arthropathy lower lumbar spine with slight degenerative anterolisthesis in the mid lumbar spine. No fracture. Impression: Fat filled umbilical hernia measures 1.3 cm. No rectus diastasis. Please note that all CT scans at this facility use dose modulation, iterative reconstruction, and/or weight-based dosing when appropriate to reduce radiation dose to as low as reasonably achievable. Dictated by Srinivasa Roth MD @ 06/01/2025 12:03:22 PM (Electronically Signed)
[2025-06-01 10:13] LABS: Creatinine* 0.6 mg/dL (0.5-1.5); Estimated Glomerular Filt Rate 90 ml/min
== END 2025-06-01 09:36 | disposition home or self-care (01) ==
LOC: CT 09:37
PROVIDERS: PCP Family Medicine; Visit Provider Obstetrics & Gynecology
DX: R19.09 Other intra-abdominal and pelvic swelling, mass and lump (principal); K42.9 Umbilical hernia without obstruction or gangrene; R10.819 Abdominal tenderness, unspecified site
CPT/HCPCS: 36415; 74177; 82565; Q9967

== ENCOUNTER 2025-06-25 07:50 | Outpatient (CLI) | payer MEDICARE, OTHER, SELFPAY | END 2025-06-25 07:51 | disposition home or self-care (01) | LOC: NFLDREF 06-27 15:05 | PROVIDERS: PCP Family Medicine; Referring Provider Family Medicine; Visit Provider Family Medicine | DX: E78.5 Hyperlipidemia, unspecified (principal); E53.8 Deficiency of other specified B group vitamins; M81.0 Age-related osteoporosis without current pathological fracture; I10 Essential (primary) hypertension; R53.83 Other fatigue | CPT/HCPCS: 80053; 80061; 82306; 82607; 84443 ==

== ENCOUNTER 2025-07-11 10:40 | Outpatient (CLI) | payer MEDICARE, OTHER, SELFPAY ==
--- NOTE | 2025-07-11 10:45 | CRLHL7_ITS ---
For Patients: As a result of the Century Cures Act, medical imaging exams and procedure reports are released immediately into your electronic medical record. You may view this report before your referring provider. If you have questions, please contact your health care provider. BILATERAL DIGITAL SCREENING MAMMOGRAM WITH COMPUTER-AIDED DETECTION AND TOMOSYNTHESIS CLINICAL HISTORY: : Routine screening exam. COMPARISON: Mammograms dated 05/09/2024, 01/01/2023 TECHNIQUE: Digital mammogram in CC and MLO projections including computer-aided detection (CAD). Tomosynthesis was utilized. BREAST COMPOSITION: There are scattered areas of fibroglandular density. FINDINGS: RIGHT Breast: No suspicious findings. LEFT Breast: Asymmetries in the medial breast middle depth. IMPRESSION: LEFT breast asymmetry/mass. RECOMMENDATIONS: Additional mammographic views of the LEFT breast including CC spot compression view, 90 degree lateral view. LEFT breast ultrasound may also be required. A member of the health care team will contact the patient to schedule the required additional imaging appointment(s). BI-RADS Category 0: Incomplete: Need Additional Imaging Evaluation Dictated by Shahana Negrete MD @ 07/11/2025 7:47:23 PM (Electronically Signed)
== END 2025-07-11 10:41 | disposition home or self-care (01) ==
LOC: MAMMO 10:41
PROVIDERS: PCP Family Medicine; Visit Provider Family Medicine
DX: Z12.31 Encounter for screening mammogram for malignant neoplasm of breast (principal); N63.20 Unspecified lump in the left breast, unspecified quadrant
CPT/HCPCS: 77063; 77067

== ENCOUNTER 2025-07-26 08:45 | Outpatient (CLI) | payer MEDICARE, OTHER, SELFPAY ==
--- NOTE | 2025-07-26 08:45 | CRLHL7_ITS ---
For Patients: As a result of the Cures Act, medical imaging exams and procedure reports are released immediately into your electronic medical record. You may view this report before your referring provider. If you have questions, please contact your health care provider. DIGITAL DIAGNOSTIC LEFT MAMMOGRAM USING TOMOSYNTHESIS LEFT BREAST ULTRASOUND CLINICAL HISTORY: LEFT breast mass/asymmetry. COMPARISON: 07/11/2025, 05/09/2024, 12/10/2021. TECHNIQUE: Digital LEFT mammogram in two projections. Tomosynthesis was used in this interpretation. Real-time ultrasound imaging of LEFT breast with imaging documentation. Scanning was performed by both the technologist and the radiologist. BREAST COMPOSITION: There are scattered areas of fibroglandular density. FINDINGS: Additional mammogram images LEFT breast submitted. Decreased conspicuity of previously noted asymmetric densities. Benign calcifications. Targeted LEFT breast ultrasound performed. At 9 o`clock 3 cm from the nipple there is a subtle hypoechoic nodule at posterior depth measuring 6 x 5 x 7 millimeters. A benign-appearing ovoid hypoechoic structure at 11 o`clock 1 cm from the nipple is also noted. Normal LEFT axillary lymph nodes. IMPRESSION: Indeterminate subtle hypoechoic nodule posterior depth LEFT breast 9 o`clock 3 cm from the nipple measuring 6 x 5 x 7 millimeters. RECOMMENDATIONS: Ultrasound-guided core needle biopsy. A lay language report of this examination will be provided to the patient. BI-RADS Category 4: Suspicious Dictated by Srinivasa Roth MD @ 07/26/2025 10:42:23 AM jj/Dictated by: Srinivasa Roth MD @ 07/26/2025 10:42:00 AM (Electronically Signed)
--- NOTE | 2025-07-26 09:15 | CRLHL7_ITS ---
For Patients: As a result of the Century Cures Act, medical imaging exams and procedure reports are released immediately into your electronic medical record. You may view this report before your referring provider. If you have questions, please contact your health care provider. SEE DIGITAL DIAGNOSTIC LEFT MAMMOGRAM PERFORMED SAME DAY CRL:[email or web address]/Dictated by: Srinivasa Roth MD @ 07/26/2025 10:42:00 AM (Electronically Signed)
== END 2025-07-26 08:46 | disposition home or self-care (01) ==
LOC: MAMMO 08:46
PROVIDERS: PCP Family Medicine; Visit Provider Family Medicine
DX: N63.20 Unspecified lump in the left breast, unspecified quadrant (principal); R92.8 Other abnormal and inconclusive findings on diagnostic imaging of breast
CPT/HCPCS: 76642; 77065; G0279

== ENCOUNTER 2025-08-06 09:57 | Outpatient (CLI) | payer MEDICARE, OTHER, SELFPAY ==
--- NOTE | 2025-08-06 10:15 | CRLHL7_ITS ---
For Patients: As a result of the Century Cures Act, medical imaging exams and procedure reports are released immediately into your electronic medical record. You may view this report before your referring provider. If you have questions, please contact your health care provider. ULTRASOUND-GUIDED BREAST BIOPSY AND POST-BIOPSY DIGITAL MAMMOGRAM FOR BIOPSY MARKER PLACEMENT CLINICAL HISTORY: Indeterminate nodule. COMPARISON STUDIES: 07/26/2025. TECHNIQUE: Real-time ultrasound with image documentation was used for targeting the breast lesion. Core biopsy specimens were obtained using an automated gun with an 18-gauge biopsy needle. Post-biopsy CC and ML digital mammograms were obtained to document position of the biopsy marker. CONSENT and TIME OUT: The procedure, risks, and alternatives were explained to the patient and a consent was signed. [place] Protocol was followed including pre-procedure verification that relevant information/documentation was available, reviewed and properly matched to the patient; consent accurate and complete; and equipment and supplies available. Time Out was conducted just prior to starting procedure to verify the four required elements: patient identity, correct side/site marked (if applicable), procedure, relevant images/results properly labeled and displayed (if applicable). PROCEDURE: The patient was positioned supine on the ultrasound table. The breast was prepped with ChloraPrep. 8 cc of 1 percent lidocaine used for local anesthesia. Core samples were obtained. A sterile metal biopsy clip was placed percutaneously to basilia the lesion position within the breast. The specimens were placed in 10% formalin and sent to the pathology department. Pressure was held on the biopsy site until all bleeding subsided. The skin incision was closed with Steri-Strips. An ice pack was positioned over the biopsy site. Post-biopsy instructions were reviewed with the patient, and a written copy was given to her. LATERALITY: LEFT breast. LESION: Hypoechoic solid nodule at posterior depth measuring 6 x 5 x 7 millimeters at 9 o`clock 3 cm from the nipple. SUSPICION FOR MALIGNANCY: High. NUMBER OF SAMPLES: 6. BIOPSY CLIP SHAPE: Oval. PROXIMITY OF CLIP TO TARGET: Immediately adjacent to the mass. IMPRESSION: Ultrasound-guided breast biopsy. When the pathology report is available, an addendum to this report will be made. ACR not applicable Dictated by Srinivasa Roth MD @ 08/06/2025 12:12:36 PM jj/Dictated by: Srinivasa Roth MD @ 08/06/2025 12:10:00 PM (Electronically Signed)
--- NOTE | 2025-08-06 11:00 | CRLHL7_ITS ---
For Patients: As a result of the Century Cures Act, medical imaging exams and procedure reports are released immediately into your electronic medical record. You may view this report before your referring provider. If you have questions, please contact your health care provider. SEE ULTRASOUND-GUIDED LEFT BREAST BIOPSY PERFORMED SAME DAY CRL:[email or web address]/Dictated by: Srinivasa Roth MD @ 08/06/2025 12:11:00 PM (Electronically Signed)
== END 2025-08-06 09:58 | disposition home or self-care (01) ==
LOC: US 09:58
PROVIDERS: PCP Family Medicine; Visit Provider Family Medicine
DX: N63.20 Unspecified lump in the left breast, unspecified quadrant (principal); C50.912 Malignant neoplasm of unspecified site of left female breast; R92.8 Other abnormal and inconclusive findings on diagnostic imaging of breast
CPT/HCPCS: 19083; 77065; 88305; 88342; 88360; 88361; A4648; A4649

== ENCOUNTER 2025-08-30 07:54 | Day surgery (SDC) | payer MEDICARE, OTHER, SELFPAY ==
--- NOTE | 2025-08-30 08:15 | CRLHL7_ITS ---
For Patients: As a result of the Century Cures Act, medical imaging exams and procedure reports are released immediately into your electronic medical record. You may view this report before your referring provider. If you have questions, please contact your health care provider. BREAST WIRE LOCALIZATION USING ULTRASOUND GUIDANCE CLINICAL HISTORY: LEFT breast cancer. LATERALITY: LEFT breast. LESION: Hypoechoic solid lesion measuring 6 x 5 x 7 millimeters at 9 o`clock 3 cm from the nipple. LOCALIZATION WIRE: [place] hookwire. TECHNIQUE: The localization wire was placed using real-time ultrasound guidance with image documentation. Cranial-caudal and medial-lateral digital mammograms were obtained after localization wire placement. CONSENT and TIME OUT: The procedure, risks, and alternatives were explained to the patient and a consent was signed. [place] Protocol was followed including pre-procedure verification that relevant information/documentation was available, reviewed and properly matched to the patient; consent accurate and complete; and equipment and supplies available. Time Out was conducted just prior to starting procedure to verify the four required elements: patient identity, correct side/site marked (if applicable), procedure, relevant images/results properly labeled and displayed (if applicable). PROCEDURE: The skin was prepped with Betadine and 6 cc of 1% lidocaine was injected for local anesthesia. The localization wire was placed within or near the targeted breast lesion using ultrasound guidance. The patient tolerated the procedure well. PROXIMITY OF WIRE TO LESION: The wire is present within the lesion adjacent to the clip. IMPRESSION: Successful breast wire localization. ACR not applicable Dictated by Srinivasa Roth MD @ 08/30/2025 10:02:11 AM jj/Dictated by: Srinivasa Roth MD @ 08/30/2025 10:02:00 AM (Electronically Signed)
[2025-08-30 08:19] VITALS: BP 135/72; PULSE 65; RESP 16; TEMP 36.6; O2SAT 94; BMI 24.2
--- NOTE | 2025-08-30 09:00 | CRLHL7_ITS ---
For Patients: As a result of the Century Cures Act, medical imaging exams and procedure reports are released immediately into your electronic medical record. You may view this report before your referring provider. If you have questions, please contact your health care provider. SEE ULTRASOUND-GUIDED LEFT BREAST WIRE LOCALIZATION PERFORMED SAME DAY CRL:[email or web address]/Dictated by: Srinivasa Roth MD @ 08/30/2025 9:59:00 AM (Electronically Signed)
[2025-08-30] MEDS: LACTATED RINGERS 1000 ML 1,000 ML 100 ML IV (09:30)
[2025-08-30] MEDS: SODIUM CHLORIDE 0.9 % (FLUSH) 10 ML SYRINGE IVF (09:30)
--- NOTE | 2025-08-30 10:06 | W.PM.H&PU ---
History & Physical Update History & Physical Update H&P Reviewed and patient assessed: No changes noted
--- NOTE | 2025-08-30 10:52 | CRLHL7_ITS ---
For Patients: As a result of the Cures Act, medical imaging exams and procedure reports are released immediately into your electronic medical record. You may view this report before your referring provider. If you have questions, please contact your health care provider. LEFT BREAST SPECIMEN RADIOGRAPH CLINICAL HISTORY: LEFT breast cancer. COMPARISON: 08/30/2025. FINDINGS: Two views of the LEFT breast specimen submitted. Specimen contains the biopsy clip, localization wire and biopsied mass. IMPRESSION: Specimen contains the biopsy clip, localization wire and biopsied mass. ACR not applicable Dictated by Srinivasa Roth MD @ 08/30/2025 11:30:36 AM jj/Dictated by: Srinivasa Roth MD @ 08/30/2025 11:30:00 AM (Electronically Signed)
--- NOTE | 2025-08-30 11:32 | PM.GSPRC ---
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 Please see consultation note for full discussion regarding treatment options based off of NCCN guidelines. Risks and benefits of operative intervention were discussed at length with the patient. Risks included but was not limited to: Bleeding, infection, risk of damage to surrounding structures, possible need for additional procedures and postoperative complications such as pneumonia, pulmonary emboli or DC. All questions and concerns were addressed with the patient agreeing to proceed. Procedure Description: After discussing the risks and benefits of the procedure, the patient signed informed consent.? Prior to arrival in the operating room, the patient was taken to radiology where a wire was placed to localize the previously placed clip. The patient was then brought to the operating room where anesthesia was induced. The left breast and axilla were prepped and draped in the usual sterile fashion. Timeout was confirmed. Local anesthesia was infiltrated into a transverse incision in the 9 o'clock position at the location of the tip of the wire. Using electrocautery, the segment of breast tissue containing the tip of the wire was excised. This was sent for evaluation. Radiology called back and confirmed that the clip, wire were present within the specimen. Pathology then called back and confirmed that the margins were appropriate, but close (within a few mm) on the medial and posterior border. An additional margin of tissue was taken medial and posterior with cautery. This did include the underlying muscle fascia posteriorly. This was painted for orientation. Hemostasis was assured with cautery. The wound was irrigated all irrigant suctioned from the wound. Additional local anesthetic was infiltrated. Clips were placed within the lumpectomy cavity did help assist with orientation in the event the patient needs radiation therapy. The wound was then closed in layers. Dermabond was placed over. An David wrap was applied for compression. The patient was awakened without incident and taken to PACU in stable condition. Sponge, needle and instrument counts were correct x3 at the termination of the case. Findings: Left breast lumpectomy, invasive ductal carcinoma. Tumor identified with pathology reporting negative margins. Anesthesia: MAC Surgeon: Giovanna Conroy MD Estimated blood loss (mL): 5 Additional Specimen Information: 1. Left breast mass 2. Posterior medial margin Condition: stable Disposition: same day [place] Node Biopsy for Breast Cancer Operation Performed with Curative Intent: Yes Tracers used to Identify sentinel nodes in the upfront surgery (non-neoadjuvant) setting: N/A (Based off of choosing wisely recommendations and NCCN guidelines no sentinel node obtained.) Tracers used to identify sentinel nodes in the neoadjuvant setting: N/A All nodes (colored or non-colored) present at the end of a dye filled lymphatic channel were removed: Not Applicable All significantly radioactive nodes were removed: Not Applicable All palpably suspicious nodes were removed: Not Applicable Biopsy proven positive nodes marked with clips prior to chemotherapy were identified and removed: Not Applicable
[2025-08-30 11:35] VITALS: BP 107/93; PULSE 57; RESP 16; TEMP 36.4; O2SAT 95
--- NOTE | 2025-08-30 11:39 | P.ANES_ITS ---
Anesthesia Charges Start Date/Time Anesthesia Start Date: 08/30/25 Anesthesia Start Time: 10:21 Stop Date/Time Anesthesia Stop Date: 08/30/25 Anesthesia Stop Time: 11:40 Summary Extremes of Age - Over 70 or under 1: STRAINER TENDER Coding CPT Codes CPT Codes: ANESTH SKIN EXT/PER/ATRUNK - 22083 ([id number]) P2 - PATIENT W/MILD SYST DISEASE, QX - STRAINER TENDER SVC W/ MD MED DIRECTION, QK - TAXONOMY TEACHER 2-4 CNCRNT ANES PROC Additional Codes: Summary - Extremes of Age - Over 70 or under 1: STRAINER TENDER ([id number])
--- NOTE | 2025-08-30 11:39 | W.ANESCHARGE ---
Anesthesia Charges Start Date/Time Anesthesia Start Date: 08/30/25 Anesthesia Start Time: 10:21 Stop Date/Time Anesthesia Stop Date: 08/30/25 Anesthesia Stop Time: 11:40 Summary Extremes of Age - Over 70 or under 1: FLAME HARDENER Coding CPT Codes CPT Codes: ANESTH SKIN EXT/PER/ATRUNK - 98931 ([id number]) P2 - PATIENT W/MILD SYST DISEASE, QX - FLAME HARDENER SVC W/ MD MED DIRECTION, QK - [employer] 2-4 CNCRNT ANES PROC Additional Codes: Summary - Extremes of Age - Over 70 or under 1: FLAME HARDENER ([id number])
[2025-08-30] MEDS: BUPIVACAINE 0.25% 30 ML INJECTION (11:40)
[2025-08-30] MEDS: LIDOCAINE 1% MDV 20 ML INJECTION (11:40)
[2025-08-30 11:45] VITALS: BP 112/99; PULSE 68; RESP 16; O2SAT 96
[2025-08-30 12:00] VITALS: BP 92/65; PULSE 72; RESP 16; O2SAT 95
[2025-08-30 12:15] VITALS: BP 104/41; PULSE 76; RESP 16; O2SAT 95
--- NOTE | 2025-08-30 12:40 | W.ANESCHARGE ---
Anesthesia Charges Start Date/Time Anesthesia Start Date: 08/30/25 Anesthesia Start Time: 10:21 Stop Date/Time Anesthesia Stop Date: 08/30/25 Anesthesia Stop Time: 11:40 Summary Extremes of Age - Over 70 or under 1: MDA Coding CPT Codes CPT Codes: ANESTH SKIN EXT/PER/ATRUNK - 19961 ([id number]) QK - CHICKEN AND [employer] BUTCHER 2-4 CNCRNT ANES PROC, QX - THORACIC MEDICINE PHYSICIAN SVC W/ MD MED DIRECTION, P2 - PATIENT W/MILD SYST DISEASE Additional Codes: Summary - Extremes of Age - Over 70 or under 1: MDA ([id number])
== END 2025-08-30 12:49 | disposition home or self-care (01) ==
PROVIDERS: PCP Family Medicine; Visit Provider Surgery
PROC: (CPT 19301; principal; 2025-08-30 10:15)
DX: C50.812 Malignant neoplasm of overlapping sites of left female breast (principal); Z17.0 Estrogen receptor positive status [ER+]; Z17.21 Progesterone receptor positive status; Z17.32 Human epidermal growth factor receptor 2 negative status
CPT/HCPCS: 19301; 00400; 19285; 76942; 77065; 99100; J2003; C1769; J0665; J0690; J1100; J2405; J2704; J3010; J7120

== ENCOUNTER 2025-11-20 12:39 | Outpatient (CLI) | payer MEDICARE, OTHER, SELFPAY ==
--- NOTE | 2025-11-20 13:00 | CRLHL7_ITS ---
For Patients: As a result of the Century Cures Act, medical imaging exams and procedure reports are released immediately into your electronic medical record. You may view this report before your referring provider. If you have questions, please contact your health care provider. XR DXA BONE MINERAL DENSITY (BMD) Current height (in): 65.0. Weight (lb): 140.0. Menopause age: 54. Ethnicity: White. Reason for exam: Osteopenia. Unspecified menopausal and perimenopausal disorder 1. Have you had a previous hip or vertebral fracture? No. 2. Have you had any fractures during your adult life which did not result from significant trauma (e.g., auto accident)? No. 3. Did either of your parents have a hip fracture? No. 4. Do you smoke? No. 5. Have you ever taken Glucocorticoids? No. 6. Do you have rheumatoid arthritis? No. 7. Do you have secondary osteoporosis? No. 8. Do you drink 3 or more alcoholic drinks per day? No. 9. Are you being treated for osteoporosis? No. 10. Have you ever taken any of the following medications: Actonel, Evista, Fosamax, Miacalcin, Reclast, Boniva, Forteo, HRT (i.e. estrogen/hormone therapy), Protelos, Prolia, Vitamin D, Calcium, other ??? please specify. ANSWER: Yes; vitamin D, calcium. 11. Do you have any of the following medical conditions: Anorexia or bulimia, asthma or emphysema, end stage renal disease, hyperparathyroidism, any seizure disorders, cancer, inflammatory bowel diseases, hysterectomy, other ??? please specify. ANSWER: Yes, arthritis, osteopenia, breast cancer. 12. What was your maximum height (inches)? 66. 13. Do you perform weight bearing exercise regularly? Yes. 14. Do you regularly consume dairy products? Yes. 15. Do you drink caffeinated beverages? No. 16. At what age did your period start? 14. 17. Are you premenopausal? No. 18. How many full-term pregnancies have you had? 1 19. Have you ever missed your period for more than 6 months in a row (not including or menopause)? No. TECHNIQUE: Bone mineral density study was performed using the [employer]. FINDINGS: The results of the study expressed as bone mineral density (BMD) are as follows: Lumbar spine L1, L3, L4: BMD: 0.923g/cm2. T-score: -1.2. Z-score: 1.6 Neck Left: BMD: 0.572 g/cm2. T-score: -2.5. Z-score: -0.1 Right: BMD: 0.548 g/cm2. T-score: -2.7. Z-score: -0.3 Total Left: BMD: 0.779 g/cm2. T-score: -1.3. Z-score: 0.9 Right: BMD: 0.742 g/cm2. T-score: -1.6. Z-score: 0.6 IMPRESSION: Osteoporosis. *Comparison exams done prior to 04/2020 were performed on different unit, AdVolume. COMPARISON: Compared with scan of 06/03/2023, the bone mineral density has decreased by 1.5 percent at the spine and decreased by 2.3 percent at the hip. Srinivasa Roth M.D. Diagnostic Radiologist [email or web address] Transcribed: 3:58 pm DW/Dictated by: Srinivasa Roth MD @ 11/20/2025 2:14:00 PM (Electronically Signed)
== END 2025-11-20 12:40 | disposition home or self-care (01) ==
LOC: RAD 12:41
PROVIDERS: PCP Family Medicine; Visit Provider Internal Medicine Hematology & Oncology
DX: N95.9 Unspecified menopausal and perimenopausal disorder (principal); M81.0 Age-related osteoporosis without current pathological fracture
CPT/HCPCS: 77080